=== PATIENT | female | born 1960 | race Caucasian/White ===

== ENCOUNTER 2017-07-25 08:04 | Day surgery (SDC) | payer BC ==
[~2017-07-25] VITALS: Ht 168.9 cm; Wt 49.0 kg
[2017-07-25 08:51] VITALS: BP 116/78
[2017-07-25] MEDS ORDERED: FENTANYL PF 100 MCG/2ML ONE ×2 (09:22→09:23)
[2017-07-25] MEDS ORDERED: NALOXONE 1 MG/ML, 2ML ONE (09:23)
[2017-07-25] MEDS ORDERED: FLUMAZENIL 0.1 MG/1 ML, 5ML ONE (09:23)
[2017-07-25] MEDS ORDERED: MIDAZOLAM 1 MG/ML, 5ML ONE (09:23)
[2017-07-25 09:36] LABS: HEMATOCRIT 38.5 % (34.6-47.8); HEMOGLOBIN 13.2 g/dL (11.7-16.4); WHITE BLOOD COUNT 2.9 x10^3/uL (3.4-10)
== END 2017-07-25 11:25 ==
LOC: OUT 08:04
PROVIDERS: ATTEND Internal Medicine
DX: C85.90 Non-Hodgkin lymphoma, unspecified, unspecified site (principal)
CPT/HCPCS: 36415; 38221; 77012; 85025; 85097; 88237; 88264; 88280; 88305; 88311; 88313; 88360; 99156; G0364; J2250; J3010; 88341; 88342; 99157; G0461; J2310